=== PATIENT | male | born 1955 | race Asian ===

== ENCOUNTER 2021-08-17 05:28 | Day surgery (SDC) | payer OTHER ==
[~2021-08-17] VITALS: Ht 165.1 cm; Wt 63.6 kg
[~2021-08-17 05:28] MED LIST: ALBU8HFA IH; ASPI-1522 PO; ATOR10TA84 PO; BENA10TA77 PO; FISH1CAP27 PO; RANI150T7 PO
[2021-08-17 06:03] LABS: COVID AG,FIA SOURCE NASAL SWAB
[2021-08-17] MEDS ORDERED: SODIUM CHLORIDE 0.9% 1,000 ML IV ONE (06:30)
[2021-08-17] MEDS ORDERED: SODIUM CHLORIDE 0.9% 1,000 ML ONE (06:34)
[2021-08-17] MEDS ORDERED: FentaNYL CITRATE PF 100 MCG/2 ML VIAL ONE (07:23)
[2021-08-17] MEDS ORDERED: MIDAZOLAM HCL 5 MG/ML VIAL ONE (07:23)
[2021-08-17] MEDS ORDERED: MethylPREDNISolone SOD SUCC 125 MG/2 ML VIAL IVP ONE (09:15)
[2021-08-17] MEDS ORDERED: LIDOCAINE 4% 50 ML SOLUTION ONE (16:23)
[2021-08-17] MEDS ORDERED: BENZOCAINE 20% 50 MCG/SPRAY 57 GM ONE (16:23)
[2021-08-17] MEDS ORDERED: LIDOCAINE 2% 5 ML JELLY ONE (16:23)
[2021-08-17] MEDS ORDERED: OXYGEN THERAPY IH SCH (20:00)
== END 2021-08-17 13:15 | disposition home or self-care (01) ==
LOC: SURGERY 05:28
PROVIDERS: ATTEND Internal Medicine Critical Care Medicine
DX: J38.4 Edema of larynx (principal); B37.0 Candidal stomatitis; I10 Essential (primary) hypertension; Z98.890 Other specified postprocedural states; Z79.899 Other long term (current) drug therapy
CPT/HCPCS: 31623; 31624; 71045; 87015; 87070; 87101; 87206; 87220; 87426; 88112; 88184; 88185; 88312; C9803; J2250; J2930; J3010; J7030; Z7610

== ENCOUNTER 2024-04-16 06:23 | Day surgery (SDC) | payer OTHER ==
[~2024-04-16] VITALS: Ht 165.1 cm; Wt 61.8 kg
[~2024-04-16 06:23] MED LIST changes: +ALBU18HF12 IH; -ALBU8HFA IH; +ATOR10TA PO; -ATOR10TA84 PO; +BENA-16 PO; -BENA10TA77 PO
[2024-04-16] MEDS ORDERED: SODIUM CHLORIDE 0.9% 1,000 ML ONE (07:14)
[2024-04-16] MEDS: SODIUM CHLORIDE 0.9% 1,000 ML IV ONE (07:47)
[2024-04-16] MEDS ORDERED: DiphenhydrAMINE HCL 50 MG/ML VIAL ONE (07:51)
[2024-04-16] MEDS ORDERED: FLUMAZENIL 0.1 MG/ML 5 ML VIAL IVP ONE (07:51)
[2024-04-16] MEDS ORDERED: NALOXONE HCL 0.4 MG/ML VIAL ONE (07:51)
[2024-04-16] MEDS ORDERED: EPINEPHrine 1:10,000 [1 MG/10 ML] SYRINGE ONE (07:51)
[2024-04-16] MEDS ORDERED: SODIUM TETRADECYL SULFATE 3% 60 MG/2 ML VIAL IVP ONE (07:51)
[2024-04-16] MEDS ORDERED: ATROPINE SULFATE 0.1 MG/ML 10 ML SYRINGE IVP ONE (07:52)
[2024-04-16] MEDS ORDERED: FentaNYL CITRATE PF 100 MCG/2 ML VIAL ONE (08:20)
[2024-04-16] MEDS ORDERED: MIDAZOLAM HCL 2 MG/2 ML VIAL ONE (08:20)
[2024-04-16 09:15] VITALS: PULSE 61; RESP 18; O2SAT 98
[2024-04-16] MEDS: MIDAZOLAM HCL 2 MG/2 ML VIAL IVP ONE (09:18)
[2024-04-16] MEDS: FentaNYL CITRATE PF 100 MCG/2 ML VIAL IVP ONE (09:18)
[2024-04-16] MEDS ORDERED: MethylPREDNISolone SOD SUCC 125 MG/2 ML VIAL ONE (09:44)
[2024-04-16] MEDS: MethylPREDNISolone SOD SUCC 125 MG/2 ML VIAL IVP ONE (09:46)
[2024-04-16] MEDS ORDERED: ALBUTEROL SULFATE 2.5 MG/0.5 ML NEB SOLUTION NEB ONE (12:00)
[2024-04-16] MEDS ORDERED: BENZOCAINE 20% 50 MCG/SPRAY 57 GM ONE (12:00)
[2024-04-16] MEDS ORDERED: LIDOCAINE 4% 50 ML SOLUTION ONE (12:00)
[2024-04-16] MEDS ORDERED: LIDOCAINE 2% 11 ML JELLY ONE (12:00)
== END 2024-04-16 11:25 | disposition home or self-care (01) ==
LOC: SURGERY 06:23
PROVIDERS: ATTEND Internal Medicine Critical Care Medicine
DX: R05.3 Chronic cough (principal); R49.0 Dysphonia; R04.2 Hemoptysis; J38.4 Edema of larynx; B37.0 Candidal stomatitis; I10 Essential (primary) hypertension; J45.909 Unspecified asthma, uncomplicated; Z86.16 Personal history of COVID-19; Z79.82 Long term (current) use of aspirin; Z79.899 Other long term (current) drug therapy; Z98.41 Cataract extraction status, right eye; Z98.42 Cataract extraction status, left eye; Z98.890 Other specified postprocedural states
CPT/HCPCS: 31623; 87206; 87101; 87220; 87070; 31624; 71045; 87015; J3010; J2250; J2919; J7030; 88108; J0171; J0461; J1200; J2310; J3490; J7613; Z7610